=== PATIENT | male | born 1970 | race African-American/Black ===

== ENCOUNTER 2018-07-27 03:17 | Emergency (ER) | payer OTHER ==
[~2018-07-27] VITALS: Ht 190.5 cm; Wt 111.1 kg
[~2018-07-27 03:17] MED LIST: AMOXICILLIN500 MG PO; AUGMENTIN 500 M1 TAB PO; AUGMENTIN 875875 MG PO; HYDROCODONE BIT1 T11 PO; MOTRIN800 MG PO; NKHM; NORFLEX100 MG PO; VICODIN ES 7501 TAB PO; ZOFRAN ODT4 MG SL
[2018-07-27] MEDS ORDERED: Motrin,Rufen800 MG PO (05:16)
== END 2018-07-27 05:37 | disposition home or self-care (01) ==
LOC: ED 03:17
DX: S46.911A Strain of unspecified muscle, fascia and tendon at shoulder and upper arm level, right arm, initial encounter (principal); V47.5XXA Car driver injured in collision with fixed or stationary object in traffic accident, initial encounter; Y93.89 Activity, other specified; Y92.89 Other specified places as the place of occurrence of the external cause; Y99.8 Other external cause status

== ENCOUNTER 2019-05-18 16:11 | Emergency (ER) | payer OTHER ==
[~2019-05-18] VITALS: Ht 190.5 cm; Wt 111.1 kg
--- NOTE | ~2019-05-18 | EKG ---
[place], [place] ELECTROCARDIOGRAM REPORT NAME: SAROJ KRISHNAN UNIT #: [id number] ROOM: DOCTOR: MIKAYLA DRAFT REPORT BIRTHDATE: [birth year] [facility] Test Date: 2019-05-18 Test Time: 16:31:28 Pat Name: SAROJ KRISHNAN Department: Room: Gender: Osteopathic Medicine Teacher: Urszula Rios : 1970 Requested By: DORA ANGELO Order Number: [id number] Reading MD: Stephen Foote Measurements Intervals [place] Rate: 54 P: 51 LA: 168 QRS: 16 QRSD: 84 T: 16 QT: 391 QTc: 371 Interpretive Statements Sinus rhythm ST elev, probable normal early repol pattern Baseline wander in lead(s) I,III,aVR,aVL No previous ECG available for comparison Electronically Signed On 05-20-2019 11:45:11 PDT by Stephen Foote CM:EKGRPT:ELECTROCARDIOGRAM REPORT [id number] DORA DEGROOT DRAFT REPORT DORA ANGELO MD
[~2019-05-18 16:11] MED LIST changes: +Motrin,Rufen800 MG PO
[2019-05-18 16:48] LABS: BASO % 0.3 % (0.0-1.0); EOS # 0.2 10*3/uL (0.0-0.4); EOS % 2.3 % (1.0-4.0); HEMATOCRIT 40.6 % (42.0-52.0); HEMOGLOBIN 13.9 g/dl (14.0-18.0); LYMPH # 1.7 10*3/uL (1.3-4.4); LYMPH % 24.5 % (27.0-41.0); MEAN CELL VOLUME 93.5 fl (80.0-94.0); MEAN CORPUSCULAR HGB CONC 34.2 g/dl (33.0-37.0); MEAN PLATELET VOLUME 11.6 fl (9.6-12.3); MONO # 0.7 10*3/uL (0.1-1.0); MONO % 9.9 % (3.0-9.0); NEUT # 4.3 10*3/uL (2.3-7.9); NEUT % 62.9 % (47.0-73.0); PLATELET COUNT AUTOMATED 200 10*3/uL (130-400); RED BLOOD COUNT 4.34 10*6/uL (4.50-5.90); RED CELL DISTRI WIDTH 12.4 % (0-14.5); WHITE BLOOD COUNT 6.9 10*3/uL (4.8-10.8)
[2019-05-18 17:04] LABS: ACT PARTIAL THROMBO TIME 26.9 SECONDS (20.0-32.1)
[2019-05-18 17:07] LABS: ALBUMIN 3.5 gm/dl (3.1-4.5); ALKALINE PHOSPHATASE 69 U/L (45-117); BUN 9 mg/dl (7-24); CHLORIDE 109 mmol/L (98-107); CPK 255 U/L (39-308); POTASSIUM 3.5 mmol/L (3.5-5.1); SGOT/AST 27 IU/L (3-35); SGPT/ALT 41 U/L (12-78); SODIUM 142 mmol/L (136-145); TOTAL PROTEIN 6.7 gm/dL (6.4-8.2)
[2019-05-18 17:12] LABS: TROPONIN I < 0.015 ng/ml (<0.045)
== END 2019-05-18 17:40 | disposition home or self-care (01) ==
LOC: ED 16:11
PROVIDERS: Emergency Medicine
DX: T67.1XXA Heat syncope, initial encounter (principal); Z79.899 Other long term (current) drug therapy; X30.XXXA Exposure to excessive natural heat, initial encounter; Y93.89 Activity, other specified; Y92.69 Other specified industrial and construction area as the place of occurrence of the external cause; Y99.8 Other external cause status

== ENCOUNTER → 2019-12-13 | Day surgery (SDC) | payer OTHER ==
[~2019-12-13] VITALS: Ht 190.5 cm; Wt 112.5 kg
[2019-12-13 08:39] VITALS: BP 132/70
[2019-12-13 10:29] VITALS: BP 142/88
[2019-12-13 10:44] VITALS: BP 139/83
[2019-12-13 10:59] VITALS: BP 119/73
--- NOTE | 2019-12-13 11:12 | NUR ---
IV FLUIDS DISCONTINUED AT 1059.
== END | disposition home or self-care (01) ==
LOC: SDC 12-12 10:15
DX: L72.0 Epidermal cyst (principal); E66.9 Obesity, unspecified; Z68.30 Body mass index [BMI] 30.0-30.9, adult; Z98.890 Other specified postprocedural states; Z85.528 Personal history of other malignant neoplasm of kidney; Z79.899 Other long term (current) drug therapy; Z82.49 Family history of ischemic heart disease and other diseases of the circulatory system; Z83.3 Family history of diabetes mellitus

== ENCOUNTER → 2020-12-07 | Outpatient (CLI) | payer BC | END | disposition home or self-care (01) | LOC: COVID19 12:33 | PROVIDERS: ATTEND Family Medicine | DX: Z20.822 Contact with and (suspected) exposure to COVID-19 (principal) ==

== ENCOUNTER 2022-01-29 09:26 | Emergency (ER) | payer OTHER ==
[~2022-01-29] VITALS: Ht 190.5 cm; Wt 98.9 kg
[2022-01-29 10:47] LABS: BASO % 0.4 % (0.0-1.0); EOS # 0.1 10*3/uL (0.0-0.4); EOS % 1.4 % (1.0-4.0); HEMATOCRIT 44.8 % (42.0-52.0); LYMPH # 1.4 10*3/uL (1.3-4.4); LYMPH % 16.7 % (27.0-41.0); MEAN CELL VOLUME 92.6 fl (80.0-94.0); MEAN CORPUSCULAR HGB CONC 33.5 g/dl (33.0-37.0); MEAN PLATELET VOLUME 10.2 fl (9.6-12.3); MONO # 0.9 10*3/uL (0.1-1.0); MONO % 10.5 % (3.0-9.0); NEUT # 5.9 10*3/uL (2.3-7.9); NEUT % 70.8 % (47.0-73.0); PLATELET COUNT AUTOMATED 240 10*3/uL (130-400); RED BLOOD COUNT 4.84 10*6/uL (4.50-5.90); RED CELL DISTRI WIDTH 12.9 % (0-14.5); WHITE BLOOD COUNT 8.4 10*3/uL (4.8-10.8)
[2022-01-29 11:09] LABS: ALKALINE PHOSPHATASE 76 U/L (45-117); BUN 13 mg/dl (7-24); CHLORIDE 110 mmol/L (98-107); POTASSIUM 4.9 mmol/L (3.5-5.1); SGOT/AST 19 IU/L (3-35); SGPT/ALT 26 U/L (12-78); SODIUM 141 mmol/L (136-145); TOTAL PROTEIN 7.3 gm/dL (6.4-8.2)
[2022-01-29] MEDS ORDERED: NAPROSYN500 MG PO (11:32)
[2022-01-29] MEDS ORDERED: CYCLOBENZAPRINE10 MG PO (11:32)
[2022-01-29] MEDS ORDERED: TYLENOL325 M1 PO (11:32)
== END 2022-01-29 11:40 | disposition home or self-care (01) ==
LOC: ED 09:26
PROVIDERS: Emergency Medicine
DX: M54.41 Lumbago with sciatica, right side (principal)

== ENCOUNTER 2022-05-19 16:44 | Emergency (ER) | payer OTHER ==
[~2022-05-19 16:44] MED LIST changes: +CYCLOBENZAPRINE10 MG PO; +NAPROSYN500 MG PO; +TYLENOL325 M1 PO
[2022-05-19 17:20] LABS: BASO % 0.3 % (0.0-1.0); EOS # 0.1 10*3/uL (0.0-0.4); EOS % 1.5 % (1.0-4.0); HEMATOCRIT 42.6 % (42.0-52.0); LYMPH # 1.4 10*3/uL (1.3-4.4); LYMPH % 14.8 % (27.0-41.0); MEAN CELL VOLUME 91.4 fl (80.0-94.0); MEAN CORPUSCULAR HGB 31.8 pg (27.0-31.0); MEAN CORPUSCULAR HGB CONC 34.7 g/dl (33.0-37.0); MEAN PLATELET VOLUME 10.3 fl (9.6-12.3); MONO # 0.6 10*3/uL (0.1-1.0); MONO % 6.6 % (3.0-9.0); NEUT # 7.3 10*3/uL (2.3-7.9); NEUT % 76.5 % (47.0-73.0); PLATELET COUNT AUTOMATED 210 10*3/uL (130-400); RED BLOOD COUNT 4.66 10*6/uL (4.50-5.90); RED CELL DISTRI WIDTH 12.7 % (0-14.5); WHITE BLOOD COUNT 9.6 10*3/uL (4.8-10.8)
[2022-05-19 17:44] LABS: BILIRUBIN Negative (Negative); BLOOD Negative (Negative); CLARITY Clear (Clear); COLOR Yellow (Yellow); GLUCOSE Negative (Negative); KETONE Negative (Negative); LEUKO ESTERASE Negative (Negative); NITRITE Negative (Negative); SPECIFIC GRAVITY 1.015 (1.001-1.030); UROBILINOGEN 0.2 E.U./dl (0.0-1.0)
[2022-05-19 17:46] LABS: ACT PARTIAL THROMBO TIME 28.2 SECONDS (20.0-32.1); INTERNATIONAL NORM RATIO 1.1 (2.0-3.5)
[2022-05-19 17:50] LABS: PH 8.5 (4.5-8.0)
[2022-05-19 17:55] LABS: ALKALINE PHOSPHATASE 75 U/L (45-117); BUN 10 mg/dl (7-24); CHLORIDE 107 mmol/L (98-107); CREATININE 0.99 mg/dL (0.70-1.30); POTASSIUM 3.3 mmol/L (3.5-5.1); SGOT/AST 25 IU/L (3-35); SGPT/ALT 30 U/L (12-78); SODIUM 139 mmol/L (136-145); TOTAL PROTEIN 6.8 gm/dL (6.4-8.2)
[2022-05-19 18:01] LABS: BACTERIA 1+; WBC 0-2 wbc/hpf (0-5)
[2022-05-19] MEDS ORDERED: NAPROXEN250 MG PO (19:26)
[2022-05-19] MEDS ORDERED: METHOCARBAMOL750 M1 PO (19:26)
== END 2022-05-19 19:36 | disposition home or self-care (01) ==
LOC: ED 16:44
PROVIDERS: Emergency Medicine
DX: M54.41 Lumbago with sciatica, right side (principal); Z79.899 Other long term (current) drug therapy

== ENCOUNTER → 2025-07-30 | Outpatient (CLI) | payer BC ==
[~2025-07-30] MED LIST changes: +METHOCARBAMOL750 M1 PO; +NAPROXEN250 MG PO
== END | disposition home or self-care (01) ==
LOC: RESCLI 13:06 → CARD 13:06
PROVIDERS: ATTEND Internal Medicine
DX: R00.1 Bradycardia, unspecified (principal); J32.9 Chronic sinusitis, unspecified; Z79.899 Other long term (current) drug therapy; Z98.890 Other specified postprocedural states

== ENCOUNTER → 2025-08-18 | Outpatient (CLI) | payer BC | END | disposition home or self-care (01) | LOC: CARD 07:58 | PROVIDERS: ATTEND Nurse Practitioner Family | DX: I51.7 Cardiomegaly (principal); I49.8 Other specified cardiac arrhythmias; R00.1 Bradycardia, unspecified ==